=== PATIENT | female | born 1950 | race Caucasian/White ===

== ENCOUNTER → 2017-04-15 | Outpatient (CLI) | payer MEDICARE, OTHER | LOC: MC.RAD 09:36 | DX: Z12.31 Encounter for screening mammogram for malignant neoplasm of breast (principal); N64.89 Other specified disorders of breast ==

== ENCOUNTER → 2017-04-18 | Outpatient (CLI) | payer MEDICARE, OTHER | LOC: MC.RAD 13:50 | DX: N64.9 Disorder of breast, unspecified (principal) ==

== ENCOUNTER → 2017-10-21 | Outpatient (CLI) | payer MEDICARE, OTHER | LOC: MC.RAD 08:00 | DX: R92.8 Other abnormal and inconclusive findings on diagnostic imaging of breast (principal) ==

== ENCOUNTER → 2017-10-22 | Outpatient (CLI) | payer MEDICARE, OTHER | LOC: MC.RAD 10:00 | DX: N63.20 Unspecified lump in the left breast, unspecified quadrant (principal) ==

== ENCOUNTER 2017-12-27 07:05 | Day surgery (SDC) | payer MEDICARE, OTHER ==
[~2017-12-27] VITALS: Ht 170.2 cm; Wt 80.9 kg
[2017-12-27 08:38] VITALS: BP 146/70; PULSE 58; TEMP 97.3
[2017-12-27] MEDS ORDERED: GLUCOSAMINE & C1 CA2 PO (09:07)
[2017-12-27] MEDS ORDERED: MSM500 MG PO (09:08)
[2017-12-27] MEDS ORDERED: MYRBETR25MG PO (09:08)
[2017-12-27] MEDS ORDERED: OSCAL 500 TAB500 MG PO (09:09)
[2017-12-27] MEDS ORDERED: LEXAPRO 10MG10 MG PO (09:09)
[2017-12-27] MEDS ORDERED: EPA FISH OIL1 SGL PO (09:10)
[2017-12-27] MEDS ORDERED: NORCO 325 MG-51 TAB PO (09:52)
[2017-12-27 09:56] VITALS: BP 140/64; PULSE 64
[2017-12-27 10:11] VITALS: BP 135/70; PULSE 55
[2017-12-27 10:26] VITALS: BP 150/58; PULSE 48
[2017-12-27 10:41] VITALS: BP 132/78; PULSE 63
== END 2017-12-27 11:05 | disposition home or self-care (01) ==
LOC: SDCO 07:05
DX: N60.22 Fibroadenosis of left breast (principal); N60.12 Diffuse cystic mastopathy of left breast; N60.82 Other benign mammary dysplasias of left breast; Z80.41 Family history of malignant neoplasm of ovary
CPT/HCPCS: J0690; J2405; J2704; J3010; J7120

== ENCOUNTER → 2018-06-30 | Outpatient (CLI) | payer MEDICARE, OTHER ==
[~2018-06-30] MED LIST: EPA FISH OIL1 SGL PO; GLUCOSAMINE & C1 CA2 PO; LEXAPRO 10MG10 MG PO; MSM500 MG PO; MYRBETR25MG PO; NORCO 325 MG-51 TAB PO; OSCAL 500 TAB500 MG PO
== END ==
LOC: MC.RAD 06-06 13:40
DX: Z12.31 Encounter for screening mammogram for malignant neoplasm of breast (principal)

== ENCOUNTER → 2018-07-02 | Outpatient (CLI) | payer MEDICARE, OTHER | LOC: MC.RAD 10:50 | DX: N64.89 Other specified disorders of breast (principal) ==

== ENCOUNTER → 2019-01-19 | Outpatient (CLI) | payer MEDICARE, OTHER | LOC: MC.RAD 07:29 | DX: N64.89 Other specified disorders of breast (principal); N63.10 Unspecified lump in the right breast, unspecified quadrant | CPT/HCPCS: G0279 ==

== ENCOUNTER → 2019-07-02 | Outpatient (CLI) | payer MEDICARE, OTHER | LOC: MC.RAD 13:29 | DX: Z12.31 Encounter for screening mammogram for malignant neoplasm of breast (principal) ==

== ENCOUNTER → 2020-07-04 | Outpatient (CLI) | payer MEDICARE, OTHER | LOC: MC.RAD 07:30 | DX: Z12.31 Encounter for screening mammogram for malignant neoplasm of breast (principal) ==

== ENCOUNTER → 2021-02-15 | Outpatient (CLI) | payer MEDICARE, OTHER | LOC: MC.RAD 13:00 | DX: N64.4 Mastodynia (principal); Z98.82 Breast implant status; Z98.890 Other specified postprocedural states ==

== ENCOUNTER → 2021-07-05 | Outpatient (CLI) | payer MEDICARE, OTHER | LOC: MC.RAD 09:45 | DX: Z12.31 Encounter for screening mammogram for malignant neoplasm of breast (principal) ==

== ENCOUNTER → 2022-07-10 | Outpatient (CLI) | payer MEDICARE, OTHER | LOC: MC.RAD 08:45 | DX: Z12.31 Encounter for screening mammogram for malignant neoplasm of breast (principal) ==

== ENCOUNTER → 2024-07-14 | Outpatient (CLI) | payer MEDICARE, OTHER | LOC: MC.RAD 08:14 | DX: Z12.31 Encounter for screening mammogram for malignant neoplasm of breast (principal) ==